=== PATIENT | male | born 1960 | race Caucasian/White ===

== ENCOUNTER → 2023-06-23 | Outpatient (CLI) | payer BC ==
[2023-06-23 14:01] LABS: Basophils # (A) 0.04 X 10*3/uL (0.00-0.10); Basophils % (A) 0.8 %; Eosinophils # (A) 0.05 X 10*3/uL (0.04-0.35); Eosinophils % (A) 1.1 %; HCT 50.5 % (39.6-50.0); HGB 17.1 d/dL (13.0-17.0); Lymphocytes # (A) 1.19 X 10*3/uL (0.90-5.00); Lymphocytes % (A) 25.1 %; MCH 30.2 pg (27.0-32.0); MCHC 33.9 d/dL (32.0-37.0); MCV 89.1 FL (80.0-97.0); Mean Platelet Volume 10.1 FL (9.5-12.2); Monocytes # (A) 0.53 X 10*3/uL (0.20-1.00); Monocytes % (A) 11.2 %; NRBC Per 100 WBC 0 X 10*3/uL (0.00-0.01); Neutrophils # (A) 2.93 X 10*3/uL (1.80-7.70); Neutrophils % (A) 61.6 %; Platelet Count 250 X 10*3/uL (140-440); RBC 5.67 X 10*6/uL (4.40-5.60); RDW 13.3 % (11.5-14.5); WBC 4.75 X 10*3/uL (4.50-10.00)
== END | disposition home or self-care (01) ==
LOC: LABPAT 08:00
PROVIDERS: ATTEND Surgery
DX: Z01.812 Encounter for preprocedural laboratory examination (principal); I49.8 Other specified cardiac arrhythmias; K46.9 Unspecified abdominal hernia without obstruction or gangrene
CPT/HCPCS: 85025; 93005